=== PATIENT | female | born 1955 | race Hispanic/Latino ===

== ENCOUNTER 2018-05-22 07:18 | Observation (INO) | payer BC ==
[2018-05-21 09:52] LABS: BASOPHILS # (AUTO) 0.1 (0.0-0.1); BASOPHILS % 1.2 % (0.0-1.0); EOSINOPHILS # (AUTO) 0.3 (0.0-0.4); EOSINOPHILS % 4.9 % (0.0-6.0); HEMATOCRIT 41.5 % (34.2-44.1); HEMOGLOBIN 13.4 g/dL (12.0-16.0); LYMPHOCYTES # (AUTO) 2.6 (1.0-3.2); MEAN CORPUSCULAR HEMOGLOBIN 29.4 pg (28-32); MEAN CORPUSCULAR HGB CONC 32.3 g/dL (31-35); MONOCYTES # (AUTO) 0.5 (0.2-0.8); NEUTROPHILS # (AUTO) 3.1 (2.1-6.9); NEUTROPHILS % 46.8 % (38.7-80.0); PLATELET COUNT 218 x10e3/uL (140-360); RED BLOOD COUNT 4.56 x10e6/uL (3.6-5.1); RED CELL DISTRIBUTION WIDTH 12.2 % (11.7-14.4)
[~2018-05-22] VITALS: Ht 162.6 cm; Wt 93.4 kg
[~2018-05-22 07:18] MED LIST: CRESTOR10 MG PO; LYRICA50 MG PO; MULTI-VITAMIN1 EACH PO; MYRBETRIQ25 MG PO; ROPIVACAINE 246.25 MG, EPINEPHRINE HCL 1:1000 0.5 MG, CLONIDINE HCL 0.08 MG, KETOROLAC ... IV ONE; VITAMIN D1000 UNI1 PO
[2018-05-22] MEDS ORDERED: BACITRACIN ZINC 15 GM OINT ONE (07:29)
[2018-05-22] MEDS ORDERED: TRANEXAMIC ACID 1,000 MG/10 ML ML ONE (07:29)
[2018-05-22] MEDS ORDERED: BACITRACIN 50,000 UNIT VIAL ONE (07:30)
[2018-05-22] MEDS ORDERED: DEXAMETHASONE SOD PHOS 10 MG/1 ML VIAL ONE (07:43)
[2018-05-22] MEDS ORDERED: CELECOXIB 200 MG CAP ONE (07:43)
[2018-05-22] MEDS ORDERED: GABAPENTIN 300 MG CAP ONE (07:43)
[2018-05-22] MEDS ORDERED: CEFAZOLIN SOD 2 GM/D5W 50ML 50 ML IV ONE (07:44)
[2018-05-22] MEDS ORDERED: ZOLPIDEM TARTRATE 5 MG TAB PO PRN (10:00)
[2018-05-22] MEDS ORDERED: ONDANSETRON HCL INJ 2 MG/ML VIAL IV PRN (10:00)
[2018-05-22] MEDS ORDERED: HYDROCODONE/APAP 5MG-325MG TAB PO PRN (10:00)
[2018-05-22] MEDS ORDERED: ACETAMINOPHEN 650 MG SUPP PR PRN (10:00)
[2018-05-22] MEDS ORDERED: DIPHENHYDRAMINE HCL INJ 50 MG/ML VIAL IM/IV PRN (10:00)
[2018-05-22] MEDS ORDERED: KETOROLAC TROMETHAMINE 30 MG/ML VIAL IV PRN (10:00)
[2018-05-22] MEDS ORDERED: DOCUSATE SODIUM 100 MG CAP PO PRN (10:00)
[2018-05-22] MEDS ORDERED: FENTANYL CITRATE/PF 100MCG/2 ML INJ ONE ×2 (10:23→13:35)
[2018-05-22] MEDS ORDERED: METOCLOPRAMIDE HCL 10 MG/2ML VIAL ONE (10:23)
[2018-05-22 11:04] VITALS: BP 131/68
--- NOTE | 2018-05-22 11:16 | Diagnostic Imaging Report ---
RIGHT KNEE - 2 VIEWS HISTORY: Osteoarthritis, postop, PACU COMPARISON: None available. FINDINGS: Sensitivity limited by portable technique. Bones: Expected postsurgical changes. Joints: Status post total knee arthroplasty. Soft tissues: A few punctate lateral calcific densities, compatible with recent surgery. Regional soft tissue swelling and air foci. Multiple anterior metallic skin jada. IMPRESSION: 1. Status post total knee arthroplasty. 2. No immediate hardware-related complication. Signed by: Dr. Ephraim Thakur D.O., M.M.M. on 05/22/2018 11:12 AM
--- NOTE | 2018-05-22 11:39 | Operative Report ---
DATE OF PROCEDURE: May 22, 2018 MEETING/EVENT PLANNER: Migue Christian PA-C The patient was brought to the operating room for induction of anesthesia. Throughout this case, my PA's assistance was necessary for retraction of soft tissue and positioning of the extremity. This allows for efficient and technically successful execution of the operation and is considered medically necessary. PREOPERATIVE DIAGNOSIS: Osteoarthritis, right knee. POSTOPERATIVE DIAGNOSIS: Osteoarthritis, right knee. PROCEDURE: Right total knee arthroplasty. INDICATIONS: The patient is a 62-year-old lady who has advanced osteoarthritis of her right knee. She has failed extensive conservative management and would like to proceed with a right total knee replacement. The risks and benefits of the procedure have been explained. She states she understands and wishes to proceed. DESCRIPTION OF PROCEDURE: The patient was brought to the operating room and placed under general anesthetic. She received prophylactic antibiotics, a regional block and tranexamic acid in the holding area. Her right lower extremity was prepped and draped in a sterile manner. A preoperative time out was performed. The extremity was exsanguinated and the proximal tourniquet was inflated to 300 mmHg. An anterior approach with a medial parapatellar arthrotomy was performed. Clear synovial fluid was removed from the joint. Soft tissue releases were performed to bring the knee up into flexion with the patella everted. Her bones were quite soft. The cruciate ligaments were sacrificed. A [employer] Gela II posterior stabilized knee system was used throughout the case. Meniscal remnants and marginal osteophytes were removed. An extramedullary cutting guide was used to resect the proximal tibia. The tibial baseplate was noted to be a size #4. The central fin punch was impacted and attention was directed towards the distal femur. An intramedullary cutting guide was used to resect the distal femur in 6 degrees of valgus and rotation referencing off of the epicondylar axis, Wilbert's line, and the posterior condyles. The femoral component was a size #5. The anterior and posterior cuts were made. Trial reductions were performed. An 11 mm ultra congruent tibial insert was felt to provide optimal soft tissue balancing in both flexion and full extension. The patella was resurfaced with a 29 mm x 9 mm patellar button. The thickness was checked before and after and was right around 22 mm. Patellar tracking was concentric. The trial implants were then all removed. A 100 mL premixed pericapsular injection was placed into the surrounding soft tissue. The knee was thoroughly irrigated with a shower-tip pulsatile lavage. The components were cemented into place using a single mix of PALACOS cement preloaded with antibiotics. Care was taken to remove extravasated cement. The wound was further irrigated while the cement cured. The arthrotomy was then closed with interrupted #1 Ethibond. The knee was put through flexion and extension to ensure a secure closure. The skin was closed with subcuticular Vicryl and jada. A sterile Aquacel bandage was applied. The patient was extubated and transported to the recovery room in stable condition. Blood loss was minimal. All needle and sponge counts were correct. Job#: [id number] BETO
[2018-05-22 12:33] VITALS: BP 131/68
[2018-05-22] MEDS: ACETAMINOPHEN 1000 MG/100 ML IV SCH ×2 (12:52→17:20)
[2018-05-22] MEDS ORDERED: LIDOCAINE 2%/ EPINEPHRINE 20ML MDV ONE (13:30)
[2018-05-22] MEDS ORDERED: ROPIVACAINE 0.5% 5 MG/ML 30 ML SDV ONE (13:30)
[2018-05-22] MEDS ORDERED: MIDAZOLAM HCL 2 MG/2 ML VIAL ONE (13:35)
[2018-05-22] MEDS ORDERED: CEFAZOLIN SOD 1 GM/D5W 50ML 50 ML IV SCH (14:00)
[2018-05-22] MEDS: CEFAZOLIN SOD 1 GM VIAL IV SCH ×2 (14:46→21:57)
[2018-05-22] MEDS: SODIUM CHLORIDE 0.9% 1000ML 1,000 ML IV SCH ×2 (14:46→20:23)
[2018-05-22 15:47] VITALS: BP 117/58
--- NOTE | 2018-05-22 17:12 | Consultation ---
DATE OF CONSULTATION: May 22, 2018 INTERNAL MEDICINE CONSULTATION ATTENDING PHYSICIAN: Dr. Williams Fletcher. HISTORY OF PRESENT ILLNESS: Ms. Rollins is a pleasant, but complex 62-year-old woman with multiple medical problems who was admitted at this time for right total knee replacement. PAST MEDICAL HISTORY: Significant for rheumatoid arthritis. She reports she had sarcoidosis in the past, but it is no longer active. She had multiple surgical procedures including lumbar laminectomy with "rods," which she reports still painful for her, also have bladder suspension and taking Myrbetriq. She also takes Lyrica 100 mg twice a day, rosuvastatin 5 mg daily, and vitamin D. PERSONAL SOCIAL HISTORY: She does not smoke or drink. REVIEW OF SYSTEMS: She denies any diabetes or hypertension. She has had surgery for breast cancer on the left side. PHYSICAL EXAMINATION GENERAL: At this time shows a pleasant woman who is alert and responsive, normotensive, afebrile. HEAD, EYES, EARS, NOSE, THROAT: Shows strabismus of the right eye. NECK: No jugular venous distention. THORAX: Heart sounds S1 and are equal. No murmurs. LUNGS: Clear. ABDOMEN: Protuberant. EXTREMITIES: Show the right leg in mechanical device. Preoperative EKG unremarkable. Preoperative CBC unremarkable. ASSESSMENT 1. Status post right total knee replacement. 2. Previous surgical procedures. PLAN: We will monitor her pain status and use analgesics and monitor overall general condition, clinically stable at this time. Thank you for asking me to see her in consultation. Job#: [id number] VAS cc:JOSE SMITH MD
[2018-05-22] MEDS: ASPIRIN 325 MG TAB PO SCH (17:20)
[2018-05-22] MEDS: CELECOXIB 100 MG CAP PO SCH (17:20)
[2018-05-22] MEDS: HYDROCODONE/APAP 7.5MG-325MG 1 EA TAB PO PRN ×2 (17:25→22:43)
[2018-05-22] MEDS ORDERED: ONDANSETRON HCL INJ 2 MG/ML VIAL ONE (18:42)
[2018-05-22] MEDS ORDERED: SEVOFLURANE INHAL SOLN 250 ML PEN BTL ONE (18:42)
[2018-05-22] MEDS ORDERED: LIDOCAINE HCL 2% LOCAL INJ 5 ML SDV VIAL INJ ONE (18:42)
[2018-05-22] MEDS ORDERED: ACETAMINOPHEN 1000 MG/100 ML IV ONE (18:42)
[2018-05-22] MEDS ORDERED: PROPOFOL IV EMULSION 10 MG/ML 20 ML VIAL ONE (18:42)
[2018-05-22 20:00] VITALS: BP 99/55
[2018-05-23] VITALS: BP 101/50
[2018-05-23] MEDS: ACETAMINOPHEN 1000 MG/100 ML IV SCH ×3 (00:22→06:03)
[2018-05-23 04:00] VITALS: BP 126/59
[2018-05-23 05:57] LABS: BASOPHILS % 0.1 % (0.0-1.0); HEMATOCRIT 32.5 % (34.2-44.1); HEMOGLOBIN 10.8 g/dL (12.0-16.0); LYMPHOCYTES # (AUTO) 1.4 (1.0-3.2); LYMPHOCYTES % 10.8 % (18.0-39.1); MEAN CORPUSCULAR HEMOGLOBIN 29.7 pg (28-32); MEAN CORPUSCULAR HGB CONC 33.2 g/dL (31-35); MEAN CORPUSCULAR VOLUME 89.3 fL (81-99); MONOCYTES # (AUTO) 0.8 (0.2-0.8); MONOCYTES % 5.8 % (4.4-11.3); NEUTROPHILS % 82.8 % (38.7-80.0); PLATELET COUNT 195 x10e3/uL (140-360); RED BLOOD COUNT 3.64 x10e6/uL (3.6-5.1); RED CELL DISTRIBUTION WIDTH 12.3 % (11.7-14.4)
[2018-05-23] MEDS: SODIUM CHLORIDE 0.9% 1000ML 1,000 ML IV SCH (06:03)
[2018-05-23] MEDS: CEFAZOLIN SOD 1 GM VIAL IV SCH (06:03)
[2018-05-23] MEDS: HYDROCODONE/APAP 7.5MG-325MG 1 EA TAB PO PRN ×2 (06:10→12:14)
[2018-05-23 06:32] LABS: ANION GAP 14.6 mmol/L (8-16); BLOOD UREA NITROGEN 13 mg/dL (7-26); BUN/CREATININE RATIO 15 (6-25); CALCIUM 9.1 mg/dL (8.4-10.2); CARBON DIOXIDE 25 mmol/L (22-29); CHLORIDE 107 mmol/L (98-107); CREATININE, SERUM 0.86 mg/dL (0.57-1.11); EST GLOMERULAR FILTRATION RATE > 60 ML/MIN (60-); GLUCOSE 119 mg/dL (74-118); POTASSIUM 4.6 mmol/L (3.5-5.1); SODIUM 142 mmol/L (136-145)
[2018-05-23] MEDS ORDERED: ASPIRIN325 MG PO (09:06)
[2018-05-23 09:20] VITALS: BP 126/59
[2018-05-23] MEDS: ASPIRIN 325 MG TAB PO SCH (09:20)
[2018-05-23] MEDS: CELECOXIB 100 MG CAP PO SCH (09:20)
[2018-05-23 09:56] VITALS: BP 135/66
[2018-05-23] MEDS ORDERED: ACETAMINOPHEN 1000 MG/100 ML IV PRN (10:00)
[2018-05-23] MEDS ORDERED: CELECOXIB 200 MG CAP PO SCH (17:00)
== END 2018-05-23 14:05 | disposition home health service (06) ==
LOC: OR 07:18 → PACU V 09:52 → UNDOADMOB 09:52 → MED/SURG 11:00
PROVIDERS: ADMIT Specialist; ATTEND Specialist
DX: M17.11 Unilateral primary osteoarthritis, right knee (principal); Z85.3 Personal history of malignant neoplasm of breast; Z88.5 Allergy status to narcotic agent; Z88.8 Allergy status to other drugs, medicaments and biological substances; Z83.6 Family history of other diseases of the respiratory system; F41.9 Anxiety disorder, unspecified; M06.9 Rheumatoid arthritis, unspecified
CPT/HCPCS: 27447; 36415 ×2; 73560; 80048; 85025 ×2; 86850 ×2; 86900 ×2; 86920 ×2; 97116 ×2; 97161; 97530; G0378 ×2; G8978; G8979; J0171; J0690 ×2; J1100; J1885 ×2; J2001 ×2; J2250; J2405; J2765; J2795; J7030 ×2